=== PATIENT | female | born 1935 | race Caucasian/White ===

== ENCOUNTER → 2018-02-08 | Outpatient (CLI) | payer MEDICARE ==
[~2018-02-08] MED LIST: HYDR1CAP2 PO; MULT-856 PO; NFAMINITAB PO; PRM25T PO; SYNTHROID
--- NOTE | 2018-02-08 16:34 | Diagnostic Imaging Report ---
Indication: Increasing right hip pain. Two views of the right hip show no fracture, dislocation or other acute abnormalities. Impression: Negative right hip. Dictated by: Dictated on workstation # [id number]
== END ==
LOC: RAD 15:50
PROVIDERS: ATTEND Specialist
DX: M25.551 Pain in right hip (principal)
CPT/HCPCS: 73502

== ENCOUNTER 2018-04-17 08:34 | Emergency (ER) | payer MEDICARE ==
[~2018-04-17] VITALS: Ht 167.6 cm; Wt 53.5 kg
[2018-04-17] MEDS ORDERED: NS IV 1000 ML 1,000 ML IV ONE (08:39)
[2018-04-17 08:52] LABS: BASOPHILS % (AUTO) 1 % (0-10); EOSINOPHILS # (AUTO) 0.1 10^3/uL (0.0-0.3); EOSINOPHILS % (AUTO) 4 % (0-10); HEMATOCRIT 32 % (35-52); LYMPHOCYTES # (AUTO) 0.8 X 10^3 (1.0-4.0); LYMPHOCYTES % (AUTO) 24 % (12-44); MEAN CORPUSCULAR HEMOGLOBIN 33 PG (25-34); MEAN CORPUSCULAR HGB CONC 35 G/DL (32-36); MEAN CORPUSCULAR VOLUME 95 FL (80-99); MEAN PLATELET VOLUME 8.7 FL (7.4-10.4); MONOCYTES # (AUTO) 0.2 X 10^3 (0.0-1.0); MONOCYTES % (AUTO) 7 % (0-12); NEUTROPHILS # (AUTO) 2.1 X 10^3 (1.8-7.8); NEUTROPHILS % (AUTO) 64 % (42-75); PLATELET COUNT 189 10^3/uL (130-400); RED BLOOD COUNT 3.35 10^6/uL (4.35-5.85); WHITE BLOOD COUNT 3.2 10^3/uL (4.3-11.0)
[2018-04-17 09:16] LABS: ALANINE AMINOTRANSFERASE 16 U/L (0-55); ALKALINE PHOSPHATASE 57 U/L (40-136); BILIRUBIN,TOTAL 0.9 MG/DL (0.1-1.0); BUN/CREATININE RATIO 24; CALCIUM 9.2 MG/DL (8.5-10.1); CARBON DIOXIDE 24 MMOL/L (21-32); CHLORIDE 106 MMOL/L (98-107); CREATININE SERUM 0.75 MG/DL (0.60-1.30); GFR ESTIMATED > 60; GLUCOSE 98 MG/DL (70-105); POTASSIUM 3.5 MMOL/L (3.6-5.0); SODIUM 140 MMOL/L (135-145)
--- NOTE | 2018-04-17 09:30 | Diagnostic Imaging Report ---
Indication: Dizziness and nausea. Time of exam 9:03 AM Comparison is made with prior radiograph from 10/15/2010. Heart size is stable. Lungs are clear. No infiltrates are seen. There is some hyperinflation consistent with COPD. No effusion or pneumothorax is identified. Impression: COPD. No acute cardiopulmonary process is detected. Dictated by: Dictated on workstation # [id number]
[2018-04-17 09:41] LABS: FREE T4 (FREE THYROXINE) 1.14 NG/DL (0.70-1.48)
[2018-04-17 10:41] LABS: BILIRUBIN,URINE NEGATIVE (NEGATIVE); CLARITY,URINE SLIGHTLY CLOUDY; COLOR,URINE YELLOW; GLUCOSE, URINE (UA) NEGATIVE (NEGATIVE); KETONES,URINE 1+ (NEGATIVE); LEUKOCYTE ESTERASE ,URINE NEGATIVE (NEGATIVE); NITRITE,URINE NEGATIVE (NEGATIVE); PH,URINE 8 (5-9); PROTEIN,URINE 1+ (NEGATIVE); UROBILINOGEN,URINE NORMAL (NORMAL)
[2018-04-17 10:54] LABS: AMORPHOUS SEDIMENT,UR FEW AMOR PHOSPHATE /LPF; BACTERIA,URINE TRACE /HPF; RBC,URINE TNTC /HPF
--- NOTE | 2018-04-17 11:45 | Diagnostic Imaging Report ---
PROCEDURE: US carotid duplex, bilateral. TECHNIQUE: Multiple real-time grayscale images were obtained over the carotid arteries in various projections, bilaterally. Additional duplex Doppler and color Doppler images were also obtained. INDICATION: Dizziness. No significant plaquing is identified in either carotid system. The velocities are normal bilaterally. No velocity elevation or stenosis is identified. Both vertebral arteries show antegrade flow. Impression: No evidence of a hemodynamically significant stenosis. Parameters based on the consensus panel Suárez-Scale and Doppler ultrasound criteria published July 2003, Radiology, Volume 229. DOPPLER (peak systolic velocity M/S Right Left CCA .73 .67 ICA Proximal .55 .5 ICA Mid .65 .59 ICA Distal .89 .78 RATIO 1.2 1.17 ECA .57 .6 VERT .53 .78 Dictated by: Dictated on workstation # [id number]
--- NOTE | 2018-04-17 12:15 | ED General ---
General Chief Complaint: Dizziness/Syncope Stated Complaint: N/V Nursing Triage Note: PT REPORTS HAVING DIZZINESS, NAUSEA, AND EMESIS X 1. PT STATES LAYING FLAT SHE DOES NOT FEEL DIZZY BUT WHEN SHE STANDS THE ROOM SPINS. PT REPORTS HER AND HER UNABLE TO DRIVE, SO SHE CALLED AN AMBULANCE. Nursing Sepsis Screen: No Definite Risk Source of Information: Patient Exam Limitations: No Limitations History of Present Illness Date Seen by Provider: Apr 17, 2018 Time Seen by Provider: 08:35 Initial Comments This 82-year-old woman presents to the emergency room via EMS with primary complaint of dizziness and disequilibrium associated with nausea and vomiting. Patient woke with the symptoms this morning and had a difficult time walking. She needed to brace herself against items for ambulation. She reports having some more minor episodic dizziness yesterday that did not interfere with her day much. She has had a few other brief episodes in recent weeks as well. She describes her dizziness as a spinning vertigo sensation that is worse upon rising. Patient is noted to be hypertensive. She arrives from home and is alert and oriented. Patient also reports having a sudden hearing loss in the right ear about a month ago. She saw a specialist in [place] for this and has been fitted with hearing aids. Patient has no focal weakness or numbness. Speech is intact. EMS gave Zofran 4 mg in route. Allergies and Home Medications Allergies Coded Allergies: Penicillins (Unverified Allergy, Mild, 10/15/10) Home Medications Hydrocodone Bit/Acetaminophen 1 Each Capsule, 1-2 EACH PO Q 4 - 6 HRS PRN Prescribed by: ALFONZO MOSQUEDA on 10/15/10 0645 Meclizine HCl 12.5 Mg Tablet, 12.5 MG PO Q6H PRN for DIZZINESS Prescribed by: ADA ESTRADA on 04/17/18 1429 Ondansetron 4 Mg Tab.rapdis, 4 MG SL Q4H PRN for NAUSEA/VOMITING-1ST LINE Prescribed by: ADA ESTRADA on 04/17/18 1429 Promethazine Hcl 25 Mg Tablet, 1 TAB PO QID PRN Prescribed by: AMADA MARINELLI on 09/25/10 6964 Patient Home Medication List Home Medication List Reviewed: Yes Review of Systems Constitutional: no symptoms reported EENTM: see HPI Respiratory: no symptoms reported Cardiovascular: no symptoms reported Gastrointestinal: see HPI Genitourinary: no symptoms reported : No Musculoskeletal: no symptoms reported Skin: no symptoms reported Psychiatric/Neurological: See HPI Hematologic/Lymphatic: No Symptoms Reported Immunological/Allergic: no symptoms reported Past Mkiiiin-Xbashs-Ziyasz Hx Past Med/Social Hx: Reviewed and Corrections made Patient Social History Alcohol Use: Denies Use Recreational Drug Use: No Smoking Status: Never a Smoker 2nd Hand Smoke Exposure: No Recent Foreign Travel: No Contact w/Someone Who Travel: No Recent Infectious Disease Expo: No Recent Hopitalizations: No Immunizations Up To Date Tetanus Booster (TDap): Unknown Seasonal Allergies Seasonal Allergies: No Past Medical History Surgeries: Yes (PARTIAL THYROID) Appendectomy, Thyroidectomy Respiratory: Yes Pneumonia Currently Using CPAP: No Currently Using BIPAP: No Cardiac: Yes (MITRAL VALVE PROLAPSE) Neurological: No 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 Disorders: 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 Genitourinary: No Gastrointestinal: Yes Gastroesophageal Reflux Musculoskeletal: Yes Arthritis Endocrine: Yes Hypothyroidsim HEENT: Yes Cataract, Macular Degeneration Hearing Impairment: Hard of Hearing, Hearing Aide Right Cancer: Yes Skin Did You Recieve Any Treatments: Yes What Type of Treatment Did You: Surgical Intervention Psychosocial: No Integumentary: No Blood Disorders: No Physical Exam Vital Signs Vital Signs - First Documented 04/17/18 08:34 Temp 97.4 Pulse 77 Resp 18 B/P (MAP) 154/82 (106) Pulse Ox 100 O2 Delivery Room Air Capillary Refill : Less Than 3 Seconds Height, Weight, BMI Height: 5'6.00" Weight: 118lbs. oz. 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 Norm as Tested, Other (Maynard-Hallpike negative) Skin: Normal Color, Warm/Dry Progress/Results/Core Measures Suspected Sepsis Recent Fever Within 48 Hours: No Infection Criteria Present: None New/Unexplained Altered Menta: No Sepsis Screen: No Definite Risk SIRS Temperature:97.4 Pulse: 77 Respiratory Rate: 18 Laboratory Tests 04/17/18 08:42: White Blood Count 3.2L Blood Pressure 154 /82 Mean: 106 Laboratory Tests 04/17/18 08:42: Creatinine 0.75, Platelet Count 189, Total Bilirubin 0.9 Results/Orders Lab Results Laboratory Tests Test 04/17/18 08:42 04/17/18 10:35 Range/Units White Blood Count 3.2 L 4.3-11.0 10^3/uL Red Blood Count 3.35 L 4.35-5.85 10^6/uL Hemoglobin 11.0 L 11.5-16.0 G/DL Hematocrit 32 L 35-52 % Mean Corpuscular Volume 95 80-99 FL Mean Corpuscular Hemoglobin 33 25-34 PG Mean Corpuscular Hemoglobin Concent 35 32-36 G/DL Red Cell Distribution Width 13.0 10.0-14.5 % Platelet Count 189 130-400 10^3/uL Mean Platelet Volume 8.7 7.4-10.4 FL Neutrophils (%) (Auto) 64 42-75 % Lymphocytes (%) (Auto) 24 12-44 % Monocytes (%) (Auto) 7 0-12 % Eosinophils (%) (Auto) 4 0-10 % Basophils (%) (Auto) 1 0-10 % Neutrophils # (Auto) 2.1 1.8-7.8 X 10^3 Lymphocytes # (Auto) 0.8 L 1.0-4.0 X 10^3 Monocytes # (Auto) 0.2 0.0-1.0 X 10^3 Eosinophils # (Auto) 0.1 0.0-0.3 10^3/uL Basophils # (Auto) 0.0 0.0-0.1 10^3/uL Sodium Level 140 135-145 MMOL/L Potassium Level 3.5 L 3.6-5.0 MMOL/L Chloride Level 106 98-107 MMOL/L Carbon Dioxide Level 24 21-32 MMOL/L Anion Gap 10 5-14 MMOL/L Blood Urea Nitrogen 18 7-18 MG/DL Creatinine 0.75 0.60-1.30 MG/DL Estimat Glomerular Filtration Rate > 60 BUN/Creatinine Ratio 24 Glucose Level 98 70-105 MG/DL Calcium Level 9.2 8.5-10.1 MG/DL Magnesium Level 2.0 1.8-2.4 MG/DL Total Bilirubin 0.9 0.1-1.0 MG/DL Aspartate Amino Transf (AST/SGOT) 23 5-34 U/L Alanine Aminotransferase (ALT/SGPT) 16 0-55 U/L Alkaline Phosphatase 57 40-136 U/L Troponin I < 0.30 <0.30 NG/ML Total Protein 6.0 L 6.4-8.2 GM/DL Albumin 4.0 3.2-4.5 GM/DL Thyroid Stimulating Hormone (TSH) 1.14 0.35-4.94 UIU/ML Free Thyroxine 1.14 0.70-1.48 NG/DL Urine Color YELLOW Urine Clarity SLIGHTLY CLOUDY Urine pH 8 5-9 Urine Specific [place] 1.010 L 1.016-1.022 Urine Protein 1+ H NEGATIVE Urine Glucose (UA) NEGATIVE NEGATIVE Urine Ketones 1+ H NEGATIVE Urine Nitrite NEGATIVE NEGATIVE Urine Bilirubin NEGATIVE NEGATIVE Urine Urobilinogen NORMAL NORMAL MG/DL Urine Leukocyte Esterase NEGATIVE NEGATIVE Urine RBC (Auto) 5+ H NEGATIVE Urine RBC TNTC H /HPF Urine WBC NONE /HPF Urine Crystals NONE /LPF Urine Amorphous Sediment FEW TESS PHOSPHATE H /LPF Urine Bacteria TRACE /HPF Urine Casts NONE /LPF Urine Mucus NEGATIVE /LPF Urine Culture Indicated NO My Orders Orders - ADA FORTUNE MD Cbc With Automated Diff (04/17/18 08:39) Comprehensive Metabolic Panel (04/17/18 08:39) Magnesium (04/17/18 08:39) Thyroid Stimulating Hormone (04/17/18 08:39) Troponin I (04/17/18 08:39) Ua Culture If Indicated (04/17/18 08:39) Ekg Tracing (04/17/18 08:39) Monitor-Rhythm Ecg Trace Only (04/17/18 08:39) Saline Lock/Iv-Start (04/17/18 08:39) Ns Iv 1000 Ml (Sodium Chloride 0.9%) (04/17/18 08:39) Free T4 (Free Thyroxine) (04/17/18 08:39) Orthostatic Vital Signs (Adult (04/17/18 08:39) Chest 1 View, Ap/Pa Only (04/17/18 08:40) Us Carotid Heri Complete [id number] (04/17/18 11:05) Ct Angio Head/Neck (04/17/18 13:05) Iohexol Injection (Omnipaque 350 Mg/Ml 1 (04/17/18 13:15) Ns (Ivpb) (Sodium Chloride 0.9%) (04/17/18 13:15) Medications Given in ED Vital Signs/I&O Capillary Refill : Less Than 3 Seconds Blood Pressure Mean: 106 Progress Note #1: Time: 12:10 Progress Note Workup has been unremarkable up to this point. Patient received a liter of IV fluid. Her orthostatic blood pressures prior to fluids were unremarkable. Lying 152/88, heart rate 66, sitting 153/79, heart rate 73, standing 137/89, heart rate 80. Patient still states she feels dizzy and or lightheaded with rising. Irais-Hallpike was negative for reproduction of symptoms or nystagmus. Carotid ultrasound was unremarkable. We discussed further workup with CT angiogram of the head and neck to further evaluate her symptoms. This would also help evaluate the sudden loss of hearing she experienced about a month ago. Patient does not feel comfortable making this decision on her own. She would like to wait until her family arrives. Progress Note #2: Progress Note Options were discussed with patient and her daughter. They requested a consult the stroke neurologist by phone. Dr. Mendoza, stroke neurologist at [facility], was contacted at 12:53. He believes imaging of the brain should be performed, preferably CT angiogram. After discussion of risks and benefits, patient consents to CT angiogram. CT angiogram showed no significant abnormalities to explain her symptoms. Patient may simply have a viral labyrinthitis. Ultimately, the cause of her dizziness was undetermined. demonstrated some disequilibrium with ambulation. Although she can ambulate on her own power without assistive devices, she seemed a bit unsteady. She was advised to ambulate with a walker whenever she feels this way. Hematuria was noted on UA. Patient states this is a known problem but has not been worked up. I stressed the importance of further evaluation and suggested she see her urologist. Cystoscopy and/or CT of the urinary system may be appropriate. ECG Initial ECG Impression Date: Apr 17, 2018 Initial ECG Impression Time: 08:47 Initial ECG Rate: 69 Initial ECG Rhythm: Normal Sinus Comment Sinus rhythm with no ST elevation or depression. No notable abnormal intervals or axis deviation. Diagnostic Imaging Diagonstic Imaging: Xray Plain Films/CT/US/NM/MRI: chest Comments Chest x-ray viewed by me and report reviewed. See report below: NAME: SHARA CLEMENTE [facility] REC#: [id number] PT STATUS: REG ER : 1935 PHYSICIAN: ADA FORTUNE MD ADMIT DATE: 04/17/18/ER Signed Date of Exam: 04/17/18 CHEST 1 VIEW, AP/PA ONLY Indication: Dizziness and nausea. Time of exam 9:03 AM Comparison is made with prior radiograph from 10/15/2010. Heart size is stable. Lungs are clear. No infiltrates are seen. There is some hyperinflation consistent with COPD. No effusion or pneumothorax is identified. Impression: COPD. No acute cardiopulmonary process is detected. Dictated by: Dictated on workstation # [id number] Dict: 04/17/18926 Trans: 04/17/18 153 Interpreted by: MIKE RODRIGUES MD Electronically signed by: MIKE RODRIGUES MD 04/17/18 1531 Diagonstic Imaging: Ultrasound Plain Films/CT/US/NM/MRI: other (Bilateral carotid) Comments NAME: SHARA CLEMENTE [facility] REC#: [id number] PT STATUS: REG ER : 1935 PHYSICIAN: ADA FORTUNE MD ADMIT DATE: 04/17/18/ER Signed Date of Exam: 04/17/18 US CAROTID HERI COMPLETE [id number] PROCEDURE: US carotid duplex, bilateral. TECHNIQUE: Multiple real-time grayscale images were obtained over the carotid arteries in various projections, bilaterally. Additional duplex Doppler and color Doppler images were also obtained. INDICATION: Dizziness. No significant plaquing is identified in either carotid system. The velocities are normal bilaterally. No velocity elevation or stenosis is identified. Both vertebral arteries show antegrade flow. Impression: No evidence of a hemodynamically significant stenosis. Parameters based on the consensus panel Suárez-Scale and Doppler ultrasound criteria published July 2003, Radiology, Volume 229. DOPPLER (peak systolic velocity M/S Right Left CCA .73 .67 ICA Proximal .55 .5 ICA Mid .65 .59 ICA Distal .89 .78 RATIO 1.2 1.17 ECA .57 .6 VERT .53 .78 Dictated by: Dictated on workstation # [id number] Dict: 04/17/18 1141 Trans: 04/17/18 1532 Interpreted by: MIKE RODRIGUES MD Electronically signed by: MIKE RODRIGUES MD 04/17/18 1532 Diagonstic Imaging: CT Plain Films/CT/US/NM/MRI: head Comments CT angiogram head and neck viewed by me and report reviewed. See report below: NAME: SHARA CLEMENTE [facility] REC#: [id number] PT STATUS: REG ER : 1935 PHYSICIAN: ADA FORTUNE MD ADMIT DATE: 04/17/18/ER Signed Date of Exam: 04/17/18 CT ANGIO HEAD/NECK PROCEDURE: CT angiography of the head and CT angiography of the neck with and without contrast. TECHNIQUE: Contiguous noncontrast images were obtained from the skull base through the vertex. After intravenous contrast administration, helical CT angiography of the neck was performed. Source data was reformatted into multiple MIP projections. Delayed post contrast acquisition was also obtained. INDICATION: Dizziness, nausea, vomiting and headaches. The precontrast head CT demonstrates the ventricles and sulci to be prominent consistent with patient's age. There is moderate periventricular hypodensity noted consistent with senescent change. No sulcal effacement is identified. There is no midline shift. No acute intra-axial or extra-axial hemorrhage is detected. Delayed postcontrast images are without evidence of an enhancing mass. CTA images demonstrate a normal three-vessel branching pattern to the aortic arch. The common carotid arteries are unremarkable. Carotid bifurcations appear to be widely patent and the internal carotid arteries are widely patent. Anterior and middle cerebral arteries are patent. No thromboembolism is seen. No definite aneurysm is identified. Bilateral posterior cerebral, basilar and vertebral arteries are patent. No thromboembolism is seen. IMPRESSION: Unremarkable CT angiogram of the head and neck. There is no evidence of thromboembolism or aneurysm. Dictated by: Dictated on workstation # [id number] Dict: 04/17/18 1341 Trans: 04/17/18 1531 Interpreted by: MIKE RODRIGUES MD Electronically signed by: MIKE RODRIGUES MD 04/17/18 1531 Departure Impression Primary Impression: Disequilibrium Additional Impressions: Hematuria Qualified Codes: R31.9 - Hematuria, unspecified Nausea and vomiting Qualified Codes: R11.2 - Nausea with vomiting, unspecified Dizziness Disposition: 01 HOME, SELF-CARE Condition: Improved Departure-Patient Inst. Decision time for Depature: 14:10 Referrals: SMITH RIVERS MD (PCP/Family) Primary Care Physician Patient Instructions: Vertigo (a Type of Dizziness) (DC), Meniere Disease Add. Discharge Instructions: Please walk very carefully and use a walker if necessary to assist with balance. You may use meclizine as prescribed for dizziness. However, this medication may make you drowsy. Be very careful with it until you know how you respond. Follow-up with your primary care provider as soon as possible. Discuss referral to a urologist for further evaluation of your hematuria (blood in the urine). Use Zofran (ondansetron) as prescribed for nausea and vomiting. Return to care if symptoms are worsening. All discharge instructions reviewed with patient and/or family. Voiced understanding. Scripts Ondansetron (Zofran Odt) 4 Mg Tab.rapdis 4 MG SL Q4H PRN for NAUSEA/VOMITING-1ST LINE, #10 TAB Prov: ADA FORTUNE MD 04/17/18 Meclizine HCl (Meclizine HCl) 12.5 Mg Tablet 12.5 MG PO Q6H PRN for DIZZINESS, #20 TAB Prov: ADA FORTUNE MD 04/17/18 ADA FORTUNE MD Apr 17, 2018 12:15
[2018-04-17] MEDS ORDERED: NS 250 ML (IVPB) BAG IV ONE (13:15)
[2018-04-17] MEDS ORDERED: IOHEXOL 350 MG/ML 100 ML (OMNIPAQUE 350) VIAL IV ONE (13:15)
--- NOTE | 2018-04-17 13:50 | Diagnostic Imaging Report ---
PROCEDURE: CT angiography of the head and CT angiography of the neck with and without contrast. TECHNIQUE: Contiguous noncontrast images were obtained from the skull base through the vertex. After intravenous contrast administration, helical CT angiography of the neck was performed. Source data was reformatted into multiple MIP projections. Delayed post contrast acquisition was also obtained. INDICATION: Dizziness, nausea, vomiting and headaches. The precontrast head CT demonstrates the ventricles and sulci to be prominent consistent with patient's age. There is moderate periventricular hypodensity noted consistent with senescent change. No sulcal effacement is identified. There is no midline shift. No acute intra-axial or extra-axial hemorrhage is detected. Delayed postcontrast images are without evidence of an enhancing mass. CTA images demonstrate a normal three-vessel branching pattern to the aortic arch. The common carotid arteries are unremarkable. Carotid bifurcations appear to be widely patent and the internal carotid arteries are widely patent. Anterior and middle cerebral arteries are patent. No thromboembolism is seen. No definite aneurysm is identified. Bilateral posterior cerebral, basilar and vertebral arteries are patent. No thromboembolism is seen. IMPRESSION: Unremarkable CT angiogram of the head and neck. There is no evidence of thromboembolism or aneurysm. Dictated by: Dictated on workstation # [id number]
[2018-04-17 14:11] VITALS: BP_SYST 137; BP_SYST 147; BP_SYST 153; BP_DIAS 79; BP_DIAS 82; BP_DIAS 89
[2018-04-17] MEDS ORDERED: ONDA4TAB8 SL (14:29)
[2018-04-17] MEDS ORDERED: MECL12.579 PO (14:29)
[2018-04-17 14:56] VITALS: BP 131/81
== END 2018-04-17 14:56 | disposition home or self-care (01) ==
LOC: EDUNIT# 08:34 → ER 08:35
DX: E87.8 Other disorders of electrolyte and fluid balance, not elsewhere classified (principal); R31.9 Hematuria, unspecified; R42 Dizziness and giddiness; R11.2 Nausea with vomiting, unspecified; I10 Essential (primary) hypertension; K21.9 Gastro-esophageal reflux disease without esophagitis; E03.9 Hypothyroidism, unspecified; Z88.0 Allergy status to penicillin; Z90.89 Acquired absence of other organs; Z87.01 Personal history of pneumonia (recurrent); Z85.828 Personal history of other malignant neoplasm of skin
CPT/HCPCS: 36415; 70496; 70498; 71045; 80053; 81000; 83735; 84439; 84443; 84484; 85025; 93005; 93041; 93880; 96360

== ENCOUNTER → 2018-11-21 | Outpatient (CLI) | payer MEDICARE ==
[~2018-11-21] MED LIST changes: +MECL12.579 PO; +ONDA4TAB8 SL
== END | disposition home or self-care (01) ==
LOC: PREOP 05:41
PROVIDERS: ATTEND Surgery
DX: Z01.818 Encounter for other preprocedural examination (principal)

== ENCOUNTER → 2018-11-23 | Outpatient (CLI) | payer MEDICARE ==
--- NOTE | 2018-11-23 20:09 | Diagnostic Imaging Report ---
INDICATION: Routine screening. No prior mammograms are available for comparison. This is a baseline study. 2-D and 3-D bilateral screening mammography was performed with Computer Aided Detection (CAD) system. FINDINGS: Scattered fibroglandular densities are identified bilaterally. No mass or malignant-appearing microcalcifications are seen. The axillae are unremarkable. IMPRESSION: No mammographic features suspicious for malignancy are identified. ACR BI-RADS Category 1: Negative. Result letter will be mailed to the patient. Note: At least 10% of breast cancer is not imaged by mammography. Dictated by: Dictated on workstation # [id number]
== END ==
LOC: RAD 08:56
PROVIDERS: ATTEND Family Medicine
DX: Z12.31 Encounter for screening mammogram for malignant neoplasm of breast (principal)
CPT/HCPCS: 77067

== ENCOUNTER → 2019-10-31 | Outpatient (CLI) | payer MEDICARE ==
[~2019-10-31] MED LIST changes: +GADOBUTROL 7.5 MMOL/7.5 ML (GADAVIST) VIAL IV ONE
--- NOTE | 2019-10-31 15:33 | Diagnostic Imaging Report ---
EXAMINATION: MR imaging brain with and without contrast. TECHNIQUE: Multiplanar, multisequence MR imaging of the brain was performed with and without contrast. HISTORY: VASCULAR DEMENTIA COMPARISON: None available. FINDINGS: The trejo-white matter differentiation is normal. No mass effect or midline shift. There is age related cerebral atrophy with ex vacuo dilation of the ventricles. There is moderate leukoaraiosis suggestive of chronic small vessel ischemic changes. Basilar cisterns are patent. No evidence for acute ischemia on diffusion weighted images. No hemorrhage is seen on the susceptibility weighted images. There are no intra- or extra-axial fluid collections. The pituitary gland and posterior fossa are normal. Upper cervical spinal cord signal intensity is normal. Thalamus and basal ganglia are normal. Normal flow voids are seen in the intracranial vasculature. The marrow signal in the calvarium is normal. The orbits are normal. Paranasal sinuses are normal. Mastoid air cells are clear. No soft tissue abnormality is seen. IMPRESSION: 1. Moderate leukoaraiosis suggestive of chronic small vessel ischemic changes. Dictated by: Dictated on workstation # [id number]
== END ==
LOC: RAD 13:59
PROVIDERS: ATTEND Family Medicine
DX: F01.50 Vascular dementia, unspecified severity, without behavioral disturbance, psychotic disturbance, mood disturbance, and anxiety (principal); I67.81 Acute cerebrovascular insufficiency
CPT/HCPCS: 70553